=== PATIENT | male | born 1955 | race Caucasian/White ===

== ENCOUNTER 2022-11-02 09:34 | Outpatient (CLI) | payer MEDICARE | END 2022-11-02 09:35 | disposition home or self-care (01) | LOC: NAV RAD 09:34 | PROVIDERS: ATTEND Nurse Practitioner Family | DX: I10 Essential (primary) hypertension (principal); M47.816 Spondylosis without myelopathy or radiculopathy, lumbar region | CPT/HCPCS: 72110 ==